=== PATIENT | female | born 1970 | race Two or more races ===

== ENCOUNTER 2021-03-10 10:00 | Inpatient (IN) | payer OTHER ==
[~2021-03-10] VITALS: Ht 160 cm; Wt 68.0 kg
== END 2021-03-18 12:25 | disposition home or self-care (01) | DRG 743 ==
LOC: SURG-SUITE 03-16 06:10 → O/R 03-16 06:10 → SURH 03-16 07:00 → SURG-SUITE 03-16 10:29
PROVIDERS: ADMIT Obstetrics & Gynecology; ATTEND Obstetrics & Gynecology
PROC: 0UT20ZZ Resection of Bilateral Ovaries, Open Approach (ICD-10-PCS; 2021-03-16)
PROC: 0UT70ZZ Resection of Bilateral Fallopian Tubes, Open Approach (ICD-10-PCS; 2021-03-16)
PROC: 0DNW0ZZ Release Peritoneum, Open Approach (ICD-10-PCS; 2021-03-16)
PROC: 0UT90ZZ Resection of Uterus, Open Approach (ICD-10-PCS; principal; 2021-03-16 07:00)
DX: D25.1 Intramural leiomyoma of uterus (principal); N72 Inflammatory disease of cervix uteri; N80.0 Endometriosis of uterus; N80.1 Endometriosis of ovary; N99.4 Postprocedural pelvic peritoneal adhesions; N73.6 Female pelvic peritoneal adhesions (postinfective); N83.8 Other noninflammatory disorders of ovary, fallopian tube and broad ligament; D26.1 Other benign neoplasm of corpus uteri; D28.2 Benign neoplasm of uterine tubes and ligaments